=== PATIENT | male | born 1990 | race Caucasian/White ===

== ENCOUNTER 2017-07-11 11:22 | Emergency (ER) | payer OTHER ==
[~2017-07-11] VITALS: Ht 162.6 cm; Wt 77.1 kg
--- NOTE | 2017-07-11 11:25 | NUR ---
PRESENTS TO ER C/O SOB, STATING "NOT ENOUGH BREATH" "HUMAN RESOURCES OFFICER MY HEART" ON DEEP INSPIRATION X2 DAYS. PATIENT IS A/OX 4. BREATHING EVEN AND UNLABORED. NO SOB. VITALS STABLE, NAD. SAFETY AND COMFORT MEASURES IN PLACE. AWAITING MD ORDERS.
--- NOTE | 2017-07-11 12:05 | NUR ---
NEW IV STARTED ON RAC, 20 G, BLOOD DRAWN AND SENT TO LAB.
[2017-07-11 12:09] LABS: BASOPHILS # (AUTO) 0.1 /CMM (0.0-0.2); BASOPHILS % (AUTO) 0.7 % (0.0-2.0); EOSINOPHILS # (AUTO) 0.2 /CMM (0.0-0.7); EOSINOPHILS % (AUTO) 2.1 % (0.0-6.0); HEMATOCRIT 45 % (39-51); HEMOGLOBIN 15.8 g/dL (13.5-17.5); LYMPHOCYTES # (AUTO) 1.8 /CMM (0.8-4.8); LYMPHOCYTES % (AUTO) 23.7 % (20.0-44.0); MEAN CORPUSCULAR HEMOGLOBIN 31 PG (26.0-33.0); MEAN CORPUSCULAR HGB CONC 36 g/dl (31.0-36.0); MEAN CORPUSCULAR VOLUME 88 fL (80-96); MONOCYTES # (AUTO) 0.6 /CMM (0.1-1.30); MONOCYTES % (AUTO) 7.6 % (2.0-12.0); NEUTROPHILS # (AUTO) 5.1 /CMM (1.8-8.9); NEUTROPHILS % (AUTO) 65.9 % (43.0-81.0); PLATELET COUNT (AUTO) 268 /CMM (150-450); RED BLOOD CELL COUNT(AUTO) 5.05 MIL/uL (4.5-6.0); WHITE BLOOD COUNT (AUTO) 7.8 K/uL (4.3-11.0)
[2017-07-11 12:18] LABS: CALCIUM, SERUM 9.1 mg/dL (8.5-10.1); CARBON DIOXIDE 25 mmol/L (21-32); CHLORIDE 105 mmol/L (98-107); GLUCOSE 96 mg/dL (74-106); POTASSIUM 4.4 mmol/L (3.5-5.1); SODIUM SERUM 138 mmol/L (136-145); UREA NITROGEN, BLOOD 12 mg/dL (7-18)
[2017-07-11 12:22] LABS: INR 0.95 (0.85-1.15)
[2017-07-11 12:27] LABS: TROPONIN I < 0.017 ng/mL (0.00-0.056)
[2017-07-11 13:30] VITALS: BP 152/66
--- NOTE | 2017-07-11 13:31 | NUR ---
IV removed. Catheter intact and site benign. Pressure and 4x4 applied to site. No bleeding noted. Patient discharged to home in stable condition. Written and verbal after care instructions given. Patient verbalizes understanding of instruction.
== END 2017-07-11 13:31 | disposition home or self-care (01) ==
LOC: ER 11:23
DX: R07.9 Chest pain, unspecified (principal); F17.200 Nicotine dependence, unspecified, uncomplicated
CPT/HCPCS: 36415; 71045-TC; 80048-TC; 84484-TC; 85025-TC; 85730-TC; A4606; Z7610

== ENCOUNTER 2018-01-28 11:10 | Emergency (ER) | payer OTHER ==
[~2018-01-28] VITALS: Ht 167.6 cm; Wt 77.1 kg
--- NOTE | 2018-01-28 11:49 | NUR ---
DR WHEATLEY AT BEDSIDE FOR EVAL.
[2018-01-28] MEDS ORDERED: ONDANSETRON HCL/PF 4 MG/2 ML VIAL ONE (11:58)
[2018-01-28] MEDS ORDERED: IV NS 0.9% 1,000 ML BAG IV ONE (12:00)
[2018-01-28] MEDS ORDERED: ONDANSETRON HCL/PF 4 MG/2 ML VIAL IVP ONE (12:00)
--- NOTE | 2018-01-28 12:00 | NUR ---
IV LINE STARTED BLOOD DRAWN AND SENT TO LAB.
[2018-01-28 12:18] LABS: ALBUMIN 5.1 g/dL (3.4-5.0); BILIRUBIN,DIRECT 0.1 mg/dL (0.0-0.2); BILIRUBIN,TOTAL 0.7 mg/dL (0.2-1.0); CALCIUM, SERUM 9.8 mg/dL (8.5-10.1); CREATININE 1.2 mg/dL (0.6-1.3); POTASSIUM 4.5 mmol/L (3.5-5.1); TOTAL PROTEIN, SERUM 9.1 g/dL (6.4-8.2)
--- NOTE | 2018-01-28 13:08 | NUR ---
Patient discharged to home in stable condition. Written and verbal after care instructions given. Patient verbalizes understanding of instruction.IV removed. Catheter intact and site benign. Pressure and 4x4 applied to site. No bleeding noted.
[2018-01-28 13:09] VITALS: BP 125/78
== END 2018-01-28 13:10 | disposition home or self-care (01) ==
LOC: ER 11:13
DX: R11.2 Nausea with vomiting, unspecified (principal); R19.7 Diarrhea, unspecified; F17.200 Nicotine dependence, unspecified, uncomplicated
CPT/HCPCS: 36415; 80048-TC; 80076-TC; 83690-TC; A4606; J2405; J7030; Z7610